=== PATIENT | female | born 1965 | race Caucasian/White ===

== ENCOUNTER 2018-08-29 14:26 | Emergency (ER) | payer OTHER ==
[~2018-08-29] VITALS: Ht 160 cm; Wt 70.3 kg
[2018-08-29] MEDS ORDERED: [UNRECOGNIZED DRUG - OTHER] PO (14:33)
[2018-08-29] MEDS ORDERED: PERCOCET 5-3251 EACH PO (17:19)
[2018-08-29 17:52] VITALS: BP 164/91
== END 2018-08-29 17:56 | disposition home or self-care (01) ==
LOC: M.ERS 14:26
DX: S52.592A Other fractures of lower end of left radius, initial encounter for closed fracture (principal); S52.612A Displaced fracture of left ulna styloid process, initial encounter for closed fracture; I10 Essential (primary) hypertension; Z90.710 Acquired absence of both cervix and uterus; Z90.49 Acquired absence of other specified parts of digestive tract; W07.XXXA Fall from chair, initial encounter; Y93.89 Activity, other specified; Y92.89 Other specified places as the place of occurrence of the external cause; Y99.8 Other external cause status